=== PATIENT | female | born 1945 | race Caucasian/White ===

== ENCOUNTER → 2018-08-16 | Outpatient (CLI) | payer MEDICARE, OTHER ==
--- NOTE | 2018-08-16 11:12 | REPMRS ---
Patient History The patient states she had a clinical breast exam in 08/2018. Patient is postmenopausal and has history of bladder cancer at age 66. Family history of breast cancer at age 50 or over in maternal cousin. 3D TOMOSYNTHESIS WAS PERFORMED. Digital Woman Screen Mammo: August 16, 2018 - Exam #: [id number] Bilateral CC and MLO view(s) were taken. Technologist: Ashley Small, Technologist Prior study comparison: August 29, 2014, digital woman screen mammo performed at [facility]. August 28, 2013, digital woman screen mammo performed at [facility] [employer] [facility]. FINDINGS: There are scattered fibroglandular densities. There has been no change in the appearance of the mammogram from the prior studies. There is a mild amount of residual fibroglandular tissue which is fairly symmetric. There is no interval development of dominant mass, architectural distortion, or clustered microcalcification suggestive of malignancy. Assessment: BI-RADS/ACR category 1 mammogram. Negative Mammogram. Recommendation Routine screening mammogram in 1 year (for women over age 40). This mammogram was interpreted with the aid of an FDA-approved computer-aided dectection system. Electronically Signed By: Demario Esposito MD 08/16/18 1111
== END ==
LOC: M WHC 09:05
PROVIDERS: ATTEND Nurse Practitioner Family
DX: Z01.419 Encounter for gynecological examination (general) (routine) without abnormal findings (principal); Z12.31 Encounter for screening mammogram for malignant neoplasm of breast; Z78.0 Asymptomatic menopausal state; Z12.12 Encounter for screening for malignant neoplasm of rectum
CPT/HCPCS: 77063; 77067; 82270; G0101

== ENCOUNTER → 2019-08-17 | Outpatient (CLI) | payer MEDICARE, OTHER ==
--- NOTE | 2019-08-17 10:20 | REPMRS ---
Patient History The patient states she had a clinical breast exam in August 2019. Patient is postmenopausal and has history of other cancer at age 66. Family history of breast cancer at age 50 or over in maternal cousin, throat cancer at age 50 in brother. Digital Woman Screen Mammo: August 17, 2019 - Exam #: [id number] Bilateral CC and MLO view(s) were taken. Technologist: Peggy Cates Technologist Prior study comparison: August 16, 2018, bilateral digital woman screen mammo performed at [facility]. September 16, 2016, left breast digital mammo diagnostic unilateral, performed at [facility]. 2015, bilateral digital mammo screening bilat, performed at [facility]. FINDINGS: There are scattered fibroglandular densities. The Volpara volumetric breast density category is:B. There has been no change in the appearance of the mammogram from the prior studies. There is a mild amount of scattered fibroglandular density which is fairly symmetric. There is no interval development of dominant mass, architectural distortion, or grouped microcalcification suggestive of malignancy. 3-D tomosynthesis shows no additional findings. Assessment: BI-RADS/ACR category 1 mammogram. Negative Mammogram. Recommendation Routine screening mammogram of both breasts in 1 year (for women over age 40). This patient's Lifetime Breast Cancer Risk is estimated at 6.6 %. This mammogram was interpreted with the aid of an FDA-approved computer-aided dectection system. Electronically Signed By: Ghulam Lopez MD 08/17/19 [id number]
--- NOTE | 2019-08-23 15:50 | DEXA ---
AP SPINE L1 - L4 1.054 -1.1 0.6 LT FEMUR TOTAL 0.741 -2.1 -0.6 LT NECK 0.734 -2.2 -0.4 RT FEMUR TOTAL 0.785 -1.8 -0.2 RT NECK 0.709 -2.7 -0.6 TOTAL BODY TOTAL OTHER COMMENTS: There is low bone density of the spine and hips. The increased density of the spine does not represent significant change. The increased density of the left hip does represent significant change. The increased density of the right hip does represent significant change. The density of the spine is decreased 7.9% since initial exam on 10/19/2003. The increased 0.5% since the most recent exam on 06/26/2011. The density of the left hip has decreased 16.9% since the initial exam on 10/19/2003. The density of the left hip has decreased 10.6% since the most recent exam on 06/26/2011. The density of the right hip has decreased 13.9% since the initial exam on 10/19/2003. The density of the right hip has decreased 8.8% since the most recent exam on 06/26/2011. FOLLOW-UP: Recommendation for the next bone density exam: 2 years. REBECA
== END ==
LOC: M WHC 09:10
PROVIDERS: ATTEND Nurse Practitioner Family
DX: Z12.31 Encounter for screening mammogram for malignant neoplasm of breast (principal); Z78.0 Asymptomatic menopausal state; Z85.89 Personal history of malignant neoplasm of other organs and systems; Z80.8 Family history of malignant neoplasm of other organs or systems
CPT/HCPCS: 77063; 77067; 77080; G0463

== ENCOUNTER → 2020-03-18 | Outpatient (CLI) | payer MEDICARE, OTHER | LOC: M LABSMTC 13:25 | PROVIDERS: ATTEND Pediatrics | DX: Z20.828 Contact with and (suspected) exposure to other viral communicable diseases (principal) ==

== ENCOUNTER → 2020-08-21 | Outpatient (CLI) | payer MEDICARE, OTHER ==
--- NOTE | 2020-08-21 13:06 | REPMRS ---
Patient History The patient states she had a clinical breast exam in August 2020. Family history of breast cancer at age 50 or over in maternal cousin, unknown cancer at age 50 in brother. Moderna vaccine #1 05/06/20 left arm. #2 06/03/20 left arm. Patient states no breast complaints today. Patient has signed MRS History Sheet. Digital Woman Screen Mammo: August 21, 2020 - Exam #: [id number] Bilateral CC and MLO view(s) were taken. Technologist: RT Manas Prior study comparison: August 17, 2019, bilateral digital woman screen mammo performed at [facility]. August 16, 2018, bilateral digital woman screen mammo performed at [facility]. FINDINGS: There are scattered fibroglandular densities. Screening. Digital screening (2D) mammography was performed bilaterally in the CC and MLO projections. Additionally, breast tomosynthesis (3D mammography) was performed bilaterally in the CC and MLO projections. Todays exam was compared to the prior exams. By history, the patient has no complaints of a palpable breast abnormality or other significant breast complaints. The breasts are unchanged in size and shape. There are no yamilet-soft tissue densities or spiculated masses. There is no internal architectural distortion. There are no suspicious yamilet-calcific clusters. Skin thickening or nipple retraction is not present. IMPRESSION: BI-RADS Category 2- Benign Findings. There is no evidence of malignant alteration of the breasts. Followup examination recommended in one year. The Volpara volumetric breast density category is B, there are scattered areas of fibroglandular density. This mammogram was [facility],an FDA approved computer aided detection system for mammography. The lifetime Tyrer-Cuzick score is 6.2 % Negative x-ray reports should not delay surgical consultation if a dominant or clinically suspicious mass is present. Not all breast cancers can be identified by mammography. Therefore, we recommend that you continue to perform regular breast self-examination and physical examination and then promptly contact your physician of any concerns or changes. Adenosis and dense breasts may obscure an underlying neoplasm. Assessment: BI-RADS/ACR category 2 mammogram. Benign Findings. Recommendation Routine screening mammogram of both breasts in 1 year. Electronically Signed By: Kyaw Salvador, DO 08/21/20 2176
== END ==
LOC: M WHC 11:33
PROVIDERS: ATTEND Nurse Practitioner Women's Health
DX: Z01.419 Encounter for gynecological examination (general) (routine) without abnormal findings (principal); Z12.31 Encounter for screening mammogram for malignant neoplasm of breast; Z80.8 Family history of malignant neoplasm of other organs or systems
CPT/HCPCS: 77063; 77067; G0101

== ENCOUNTER → 2021-10-20 | Outpatient (CLI) | payer MEDICARE, OTHER | LOC: M WHC 14:33 | PROVIDERS: ATTEND Internal Medicine Cardiovascular Disease | DX: N64.4 Mastodynia (principal) | CPT/HCPCS: 76642; 77066; G0279 ==

== ENCOUNTER → 2023-06-25 | Outpatient (CLI) | payer MEDICARE, OTHER | LOC: M WHC 14:33 | PROVIDERS: ATTEND Nurse Practitioner Family | DX: Z12.31 Encounter for screening mammogram for malignant neoplasm of breast (principal) ==